=== PATIENT | female | born 2000 | race Two or more races ===

== ENCOUNTER 2024-09-15 10:06 | Emergency (ER) | payer MEDICAID, OTHER ==
[~2024-09-15] VITALS: Ht 175.3 cm; Wt 106.0 kg
[2024-09-15 10:40] VITALS: PULSE 158; RESP 18; TEMP 98.4; O2SAT 97
[2024-09-15] MEDS: SODIUM CHLORIDE 0.9% 1,000 ML IV ONE ×2 (10:53→13:03)
[2024-09-15] MEDS: MORPHINE SULFATE 4 MG/ML SYR/VIAL IV ONE (10:54)
[2024-09-15] MEDS: LORazepam 2MG/ML-1ML VIAL IV ONE (10:55)
[2024-09-15] MEDS: ONDANSETRON HCL 4 MG/2 ML VIAL IV ONE (11:11)
[2024-09-15 11:15] LABS: Basophils # (auto) 0.1 10 ^3/uL (0-0.2); Basophils % (auto) 0.8 % (0.0-2.0); Eosinophils # (auto) 0.1 10 ^3/uL (0-0.8); Eosinophils % (auto) 1.2 % (0.0-7.0); Hematocrit 43.4 % (36.0-46.0); Lymphocytes # (auto) 2.9 10 ^3/uL (0.4-5.4); Lymphocytes % (auto) 26.8 % (10.0-50.0); Mean Corpuscular Hemoglobin 27.9 pg (28.0-32.0); Mean Corpuscular Hgb Conc. 34.5 g/dL (32.0-36.0); Monocytes # (auto) 0.4 10 ^3/uL (0-1.3); Monocytes % (auto) 3.7 % (0.0-12.0); Neutrophils # (auto) 7.2 10 ^3/uL (1.6-8.6); Neutrophils % (auto) 67.5 % (37.0-80.0); Platelet Count (auto) 446 10^3/uL (140-450); Red Blood Cells 5.36 10^6/uL (4.0-5.20); Red Cell Distribution Width 14.7 % (11.8-14.3); White Blood Cell 10.7 10^3/uL (4.4-10.8)
[2024-09-15 11:23] LABS: Chloride 102 mmol/L (98-107); Potassium 3.6 mmol/L (3.5-5.1); Sodium 137 mmol/L (136-145)
[2024-09-15 11:24] LABS: Anion Gap 11 (5-15); Carbon Dioxide 24 mmol/L (20-31)
[2024-09-15 11:29] LABS: Blood Urea Nitrogen 13 mg/dL (9-23)
[2024-09-15 11:31] LABS: Calcium 10.9 mg/dL (8.7-10.4); Glucose 109 mg/dL (74-106)
--- NOTE | 2024-09-15 12:09 | ED.PDOC ---
HPI Comments 24y F who presents to the ED for chief complaint of a vaginal laceration. Pt states "my was fingering me and his fingernail got caught on a cut he had caused with his nail before," causing the laceration to re-open and bleed. Pt noted to be tachycardic in the 150's at triage. Reports intermittent tachycardia since the age of 11, states she was evaluated by a tub operator and was told condition went away. She was not prescribed any medications. Pt does states she has history of fentanyl use disorder and is currently 7 months sober. Patient's reports they live in house where many of the other occupants smoke methamphetamine, so he is concerned for 2nd hand methamphetamine effects. Pt otherwise denies chest pain, shortness of breath, nausea, vomiting, dysuria, hematuria, fever, cough , chills or any associated symptoms. Chief Complaint: Laceration Time Seen by MD: 12:06 Primary Care Provider: DENIES Reviewed Notes: Nurses Notes, Medications, Allergies Allergies: Coded Allergies: NO KNOWN ALLERGIES (Unverified , 09/15/24) Home Meds Active Scripts Ibuprofen Micronized (Ibuprofen) 800 Mg Tab, 800 MG PO Q8HP PRN, #30 TAB prn pain, take with food Prov:CARRIE GALINDO MD 09/15/24 Cephalexin Monohydrate (Cephalexin) 500 Mg Cap, 1 CAP PO QID for 10 Days, #40 CAP Prov:CARRIE GALINDO MD 09/15/24 Information Source: Patient, Significant Other Mode of Arrival: Ambulatory Complexity: Simple Laceration Length (cm): 2 Skin Type: Linear Depth of Injury: Mucosa Associated Signs and Symptoms: Bleeding Past Medical History Past Medical History (Other): Tachycardia Surgical History: Denies all surgeries PLASTIC PROCESS TECHNICIAN History: Denies all PLASTIC PROCESS TECHNICIAN Hx Family History Family History: Reviewed,noncontributory to illness Social History Smoker: Non-Smoker Alcohol: Denies ETOH Use Drugs: Other (fentanyl) Lives In: Other (jail house) Constitutional: denies: chills, diaphoresis, fatigue, fever, malaise, sweats, weakness, others EENTM: denies: blurred vision, double vision, ear bleeding, ear discharge, ear drainage, ear pain, ear ringing, eye pain, eye redness, hearing loss, mouth pain, mouth swelling, nasal discharge, nose bleeding, nose congestion, nose pain, photophobia, tearing, throat pain, throat swelling, voice changes, others Respiratory: denies: cough, hemoptysis, orthopnea, SOB at rest, shortness of breath, SOB with excertion, stridor, wheezing, others Cardiovascular: denies: chest pain, dizzy spells, diaphoresis, Dyspnea on exertion, edema, irregular heart beat, left arm pain, lightheadedness, palpitations, PND, syncope, others Gastrointestinal: denies: abdomen distended, abdominal pain, blood streaked bowels, constipated, diarrhea, dysphagia, difficulty swallowing, hematemesis, melena, nausea, poor appetite, poor fluid intake, rectal bleeding, rectal pain, vomiting, others Genitourinary: denies: abnormal vagina bleeding, burning, dyspareunia, dysuria, flank pain, frequency, hematuria, incontinence, pain, , vagina discharge, urgency, others Neurological: denies: dizziness, fainting, headache, left sided numbness, left sided weakness, numbness, paresthesia, pre-existing deficit, right sided numbness, right sided weakness, seizure, speech problems, tingling, tremors, weakness, others Musculoskeletal: denies: back pain, gout, joint pain, joint swelling, muscle pain, muscle stiffness, neck pain, others Integumetry: reports: laceration (vaginal cavity); denies: bruises, change in color, change in hair/nails, dryness, lesions, lumps, rash, wounds, others Allergic/Immunocompromised: denies: Difficulty Healing, Frequent Infections, Hives, Itching, others Hematologic/Lymphatic: denies: anemia, blood clots, easy bleeding, easy bruising, swollen glands, others Endocrine: denies: excessive hunger, excessive sweating, excessive thirst, excessive urination, flushing, intolerance to cold, intolerance to heat, unexplained weight gain, unexplained weight loss, others Psychiatric: denies: anxiety, bipolar disorder, depression, hopeless, panic disorder, schizophrenia, sleepless, suicidal, others All Other Systems: Reviewed and Negative Physical Exam General Appearance: No Apparent Distress, Obese HEENT: PERRL/EOMI Neck: Full Range of Motion, Normal Inspection Respiratory: Lungs Clear, No Accessory Muscle Use, No Respiratory Distress, Normal Breath Sounds Cardiovascular: No Edema, No JVD, Tachycardia Breast Exam: Deferred Gastrointestinal: Non Tender, Soft Genitalia: Other (Superficial approximate 2 cm vaginal mucosal laceration on the right vaginal mucosa area without edema, erythema, discharge or bleeding.) Pelvic: Deferred Rectal: Deferred Extremities: Normal inspection, Normal range of motion, No pedal edema Neurologic: Alert (Oriented x4), Normal Affect, Normal Mood, Other (Ambulatory. No gross focal deficit.) Cerebellar Function: NOT DONE Reflexes: NOT DONE Skin: Dry, Normal Color, Warm Lymphatic: NOT DONE Was a procedure done? Was a procedure done?: No EKG EKG : Comments Sinus tach, rate 156, normal intervals, normal axis, normal QRS, nonspecific T changes. Differential diagnosis Suture Removal: Wound Dehiscence Generic Laceration: Hematoma, Abrasion/Contusion, Laceration Differential Diagnosis: Other (Drug/alcohol intoxication, other tachyarrhythmia, dehydration, electrolyte imbalance, among others) X-Ray, Labs, Meds, VS Vital Signs Date Time Temp Pulse Resp B/P (MAP) Pulse Ox O2 Delivery O2 Flow Rate FiO2 09/15/24 15:10 96 15 103/58 (73) 97 09/15/24 14:00 97 23 98/69 (79) 100 09/15/24 12:00 120 09/15/24 12:00 100 18 107/58 (74) 100 09/15/24 11:24 100 16 106/57 09/15/24 11:00 100 23 106/57 (73) 97 09/15/24 10:54 132 18 114/72 09/15/24 10:40 98.4 158 18 114/72 (86) 97 98.4 09/15/24 10:40 158 18 97 Room Air* 0 21 09/15/24 10:31 156 09/15/24 10:22 98.4 150 16 113/77 (89) 97 Lab Test 09/15/24 13:20 09/15/24 13:16 09/15/24 10:59 Range/Units Urine Color Light-yellow Yellow Urine Clarity Hazy H Clear Urine pH 5.5 5.0-9.0 Urine Specific [place] 1.007 1.001-1.035 Urine Protein Negative Negative Urine Ketones Negative Negative Urine Blood 1+ H Negative /uL Urine Nitrite Negative Negative Urine Bilirubin Negative Negative Urine Urobilinogen Normal Negative mg/dL Urine Leukocyte Esterase 2+ Negative /uL Urine RBC 1 0 - 4 /hpf Urine Microscopic WBC 6 H 0-5 /HPF Urine Squamous Epithelial Cells Few <5 /hpf Urine Bacteria Few H None Seen /hpf Urine Glucose Normal Normal mg/dL Urine Opiates Screen Neg NEGATIVE Urine Fentanyl Screen Neg NEGATIVE Urine Barbiturates Screen Neg NEGATIVE Urine Phencyclidine Screen Neg NEGATIVE Urine Amphetamines Screen Pos NEGATIVE Urine Benzodiazepines Screen Neg NEGATIVE Urine Cocaine Screen Neg NEGATIVE Urine Cannabinoids Screen Pos NEGATIVE Troponin I High Sensitivity < 3 L < 3 L </=34 ng/L White Blood Count 10.7 4.4-10.8 10^3/uL Red Blood Count 5.36 H 4.0-5.20 10^6/uL Hemoglobin 15.0 12.2-16.2 g/dL Hematocrit 43.4 36.0-46.0 % Mean Corpuscular Volume 81.0 80.0-100.0 fL Mean Corpuscular Hemoglobin 27.9 L 28.0-32.0 pg Mean Corpuscular Hemoglobin Concent 34.5 32.0-36.0 g/dL Red Cell Distribution Width 14.7 H 11.8-14.3 % Platelet Count 446 140-450 10^3/uL Mean Platelet Volume 8.4 6.9-10.8 fL Neutrophils (%) (Auto) 67.5 37.0-80.0 % Lymphocytes (%) (Auto) 26.8 10.0-50.0 % Monocytes (%) (Auto) 3.7 0.0-12.0 % Eosinophils (%) (Auto) 1.2 0.0-7.0 % Basophils (%) (Auto) 0.8 0.0-2.0 % Neutrophils # (Auto) 7.2 1.6-8.6 10 ^3/uL Lymphocytes # (Auto) 2.9 0.4-5.4 10 ^3/uL Monocytes # (Auto) 0.4 0-1.3 10 ^3/uL Eosinophils # (Auto) 0.1 0-0.8 10 ^3/uL Basophils # (Auto) 0.1 0-0.2 10 ^3/uL Nucleated Red Blood Cells 0.0 % Sodium Level 137 136-145 mmol/L Potassium Level 3.6 3.5-5.1 mmol/L Chloride Level 102 98-107 mmol/L Carbon Dioxide Level 24 20-31 mmol/L Anion Gap 11 5-15 Blood Urea Nitrogen 13 9-23 mg/dL Creatinine 0.93 0.550-1.02 mg/dL Glomerular Filtration Rate Calc 89 >90 mL/min BUN/Creatinine Ratio 14.0 10.0-20.0 Serum Glucose 109 H 74-106 mg/dL Calcium Level 10.9 H 8.7-10.4 mg/dL B-Type Natriuretic Peptide 3.98 0-100 pg/mL Beta HCG, Quantitative 0.2 L 1.5-4.2 mIU/mL Current Medications Medications (Trade) Dose Ordered Sig/Claritza Route Start Time Stop Time Status Last Admin Sodium Chloride 1,000 ml @ 1,000 mls/hr Q1H ONCE IV 09/15/24 10:45 09/15/24 11:44 DC 09/15/24 10:53 Morphine Sulfate 4 mg ONCE ONCE IV 09/15/24 10:45 09/15/24 10:46 DC 09/15/24 10:54 Ondansetron HCl (Zofran) 4 mg ONCE ONCE IV 09/15/24 10:45 09/15/24 10:46 DC 09/15/24 11:11 Lorazepam (Ativan Inj) 0.5 mg ONCE ONCE IV 09/15/24 10:45 09/15/24 10:46 DC 09/15/24 10:55 Sodium Chloride 1,000 ml @ 1,000 mls/hr Q1H ONCE IV 09/15/24 11:15 09/15/24 12:14 DC 09/15/24 13:03 Ceftriaxone Sodium 50 ml @ 100 mls/hr ONCE ONCE IV 09/15/24 14:30 09/15/24 14:59 DC 09/15/24 14:58 Ketorolac Tromethamine (Toradol Injection) 30 mg ONCE ONCE IV 09/15/24 15:15 09/15/24 15:16 DC 09/15/24 15:19 X-Ray, Labs, Meds, VS Comment 24-year-old female with a history of tachycardia brought in by spouse for evaluation of a vaginal mucosal laceration and found to be tachycardic in the 150s at triage Vitals remarkable for heart rate 150 Exam remarkable for superficial right-sided vaginal mucosal laceration without surrounding erythema, edema, discharge or bleeding Rhythm strip independently interpreted by me: Sinus tach, rate 156, no ectopy. CBC, basic metabolic panel, BNP and serial troponins unremarkable, hCG negative, urine drug screen positive for amphetamines and cannabinoids, UA abnormal consistent with UTI Patient treated with the following in the ED: 2 L 0.9 normal saline IV bolus, morphine 4 mg IV, Zofran 4 mg IV, Ativan 0.5 mg IV, Rocephin 1 g IV On re-evaluation, patient's heart rate is 80 and other vitals were stable. Hospitalization was considered, however patient had rapid improvement of symptoms with treatment in the ED, and I no longer feel hospitalization is necessary. The superficial vaginal mucosal laceration does not require wound closure, as it is extremely superficial and should heal on its own. Patient was advised regarding workup findings, my impression, treatment plan and follow-up recommendations. She expressed understanding and agreed. Rx Keflex, ibuprofen Time of 1ST Reevaluation: 12:35 Reevaluation 1ST: Unchanged Time of 2ND Reevaluation: 14:38 Reevaluation 2ND: Improved Patient Education/Counseling: Diagnosis, Treatment Family Education/Counseling: Diagnosis, Treatment Additional Information -Reviewed patient's previous visit(s): - The following tests were ordered, and results were reviewed by me: ekg x1, tropx2, cbc, bnp, ua, bmp, beta hcg, drug screen - Additional information was gathered from interviewing the following independent Historian:pt and pt partner - I reviewed and agreed with the following test results read by other provider: none - I discussed treatments and results with medical personnel and: patient and pt partner Comprehensive systems review obtained and negative except for what is stated in the HPI. Departure 1 Departure Time of Disposition: 14:38 Impression: Primary Impression: Vaginal laceration, old Additional Impressions: UTI (urinary tract infection) Qualified Codes: N39.0 - Urinary tract infection, site not specified Amphetamine abuse Tachycardia Disposition: HOME / SELF CARE / HOMELESS Condition: Stable Referrals: DRE AKINS DO Additional Instructions: Your blood tests were unremarkable. Your urine test showed you have a urinary tract infection. I have prescribed pain medication for your laceration, which should heal on its own. I have also prescribed antibiotics to treat your UTI. Follow-up with your OBGYN in 1-2 days for re-evaluation to make sure the laceration is healing. Tentatively, you may follow-up directly with Dr. Akins. e-Prescriptions Ibuprofen Micronized (Ibuprofen) 800 Mg Tab 800 MG PO Q8HP PRN, #30 TAB prn pain, take with food Prov: CARRIE GALINDO MD 09/15/24 Cephalexin Monohydrate (Cephalexin) 500 Mg Cap 1 CAP PO QID for 10 Days, #40 CAP Prov: CARRIE GALINDO MD 09/15/24 Discharged With: Spouse Critical Care Note Critical Care Time?: No Stability Stability form required: No Heart Score Heart Score: Heart Score Response (Comments) Value History N/A 0 EKG N/A 0 Age N/A 0 Risk Factors N/A 0 Troponin N/A 0 Total 0 I personally scribed for CARRIE GALINDO MD ([email or web address]) on 09/15/24 at 12:09. Electronically submitted by Kevin Ramirez ([facility]). CARRIE GALINDO MD Sep 15, 2024 12:09
[2024-09-15 13:43] LABS: Urine Bacteria FEW /hpf (None Seen); Urine Blood 1+ /uL (Negative); Urine Protein, UAD Negative (Negative); Urine Specific Gravity 1.007 (1.001-1.035); Urine Squamous Epithelial Cell FEW /hpf (<5); Urine Urobilinogen Normal (Negative); Urine WBC 6 /HPF (0-5); Urine pH 5.5 (5.0-9.0)
[2024-09-15 13:44] LABS: Urine Clarity Hazy (Clear); Urine Color Light-Yellow (Yellow)
[2024-09-15 13:56] LABS: Opiate Scree,Urine Neg (NEGATIVE)
[2024-09-15 13:58] LABS: Amphetamine Screen, Urine Pos (NEGATIVE); Barbiturate Scree,Urine Neg (NEGATIVE); Benzodiazephine Screen, Urine Neg (NEGATIVE); Cannabinoid Screen, Urine Pos (NEGATIVE); Cocaine Screen, Urine Neg (NEGATIVE); Phencyclidine Screen, Urine Neg (NEGATIVE)
[2024-09-15] MEDS ORDERED: CEPH500C PO (14:41)
[2024-09-15] MEDS ORDERED: IBUP-1455 PO (14:41)
[2024-09-15] MEDS: cefTRIAXone 1GM/50ML D5W 50 ML IV ONE (14:58)
[2024-09-15 15:10] VITALS: BP 103/58; PULSE 96; RESP 15; O2SAT 97
[2024-09-15] MEDS: KETOROLAC TROMETH 30 MG/ML 1ML VIAL IV ONE (15:19)
--- NOTE | 2024-09-16 04:36 | ECG ---
[facility] Test Date: 2024-09-15 Test Time: 10:31:11 Pat Name: ITALO PEÑA Department: ER Room: Gender: F [employer] Operations Manager: ER : 2000 Requested By: CARRIE SALES Order Number: [id number] Reading MD: Boyd Dawkins Measurements Intervals [place] Rate: 156 P: 63 ID: [id number] QRS: -3 QRSD: 70 T: 2 QT: 255 QTc: 411 Interpretive Statements Sinus tachycardia Probable left atrial enlargement Minimal ST depression, lateral leads Artifact in lead(s) I,III,aVR,aVL,aVF,V1,V2,V3,V4,V5,V6 and baseline wander in lead(s) V4 Electronically Signed On 09-19-2024 16:43:01 PDT by Boyd Dawkins Please click the below link to view image of tracing.
== END 2024-09-15 15:44 | disposition home or self-care (01) ==
LOC: ER 10:06
DX: S31.41XA Laceration without foreign body of vagina and vulva, initial encounter (principal); R10.2 Pelvic and perineal pain; F15.10 Other stimulant abuse, uncomplicated; Z79.899 Other long term (current) drug therapy; N39.0 Urinary tract infection, site not specified; R00.0 Tachycardia, unspecified; W45.8XXA Other foreign body or object entering through skin, initial encounter; Y93.89 Activity, other specified; Y92.89 Other specified places as the place of occurrence of the external cause; Y99.8 Other external cause status
CPT/HCPCS: 36415; 80048; 80307; 81001; 83880; 84484; 84702; 85025; 93005; 96361; 96365; 96375; 99285; J0696; J1885; J2060; J2270; J2405; J7030